=== PATIENT | male | born 1965 | race Caucasian/White ===

== ENCOUNTER 2019-07-01 11:30 | Outpatient (CLI) | payer BC ==
[~2019-07-01] VITALS: Ht 152.4 cm; Wt 72.0 kg
[~2019-07-01 11:30] MED LIST: ASPIRIN E.C. 8181 MG PO; BRILINTA90 MG PO; LEVEMIR100 U/ML SQ; LIPITOR 40MG TA40 MG PO; NITROSTAT0.4 MG/TAB SL; PRIL40 PO; TOPROL XL 25MG25 MG PO
[2019-07-01] MEDS ORDERED: ASPIRIN E.C. 8181 MG PO (11:50)
[2019-07-01] MEDS ORDERED: PAXIL 10MG10 MG PO (11:51)
[2019-07-01] MEDS ORDERED: LIPITOR 40MG TA40 MG PO (11:51)
[2019-07-01] MEDS ORDERED: TOPROL XL 25MG25 MG PO (11:52)
[2019-07-01] MEDS ORDERED: BRILINTA90 MG PO (11:52)
[2019-07-01 11:57] VITALS: BP 150/78; PULSE 52; TEMP 98.1
[2019-07-01] MEDS ORDERED: CEPHALEXIN500 M1 PO (13:07)
[2019-07-01 13:30] VITALS: BP 179/76; PULSE 57
--- NOTE | 2019-07-01 13:43 | NUR ---
Discharge instructions given to pt.Pt verbalizes understanding.
--- NOTE | 2019-07-01 13:56 | NUR ---
Pt escorted out by this nurse.
== END 2019-07-01 13:57 | disposition home or self-care (01) ==
LOC: COL.CAR 11:30
DX: R55 Syncope and collapse (principal); E11.9 Type 2 diabetes mellitus without complications; I25.10 Atherosclerotic heart disease of native coronary artery without angina pectoris; Z79.82 Long term (current) use of aspirin; Z79.4 Long term (current) use of insulin; Z91.018 Allergy to other foods